=== PATIENT | male | born 1970 | race African-American/Black ===

== ENCOUNTER 2017-07-22 07:11 | Emergency (ER) | payer OTHER ==
[~2017-07-22] VITALS: Ht 182.9 cm; Wt 156.0 kg
[~2017-07-22 07:11] MED LIST: ASPI-986 PO; ATOR20TA65 PO; CARV6.2548 PO; CLOP75TA33 PO; LISI40TA4 PO; MINO2.5T19 PO
[2017-07-22] MEDS ORDERED: ONDANSETRON HCL 4MG/2ML VIAL IV STA (07:39)
[2017-07-22] MEDS ORDERED: MORPHINE SULFATE 4 MG/ML CPJ (NOT FOR IM USE) IV STA (07:39)
[2017-07-22] MEDS ORDERED: SODIUM CHLORIDE 0.9% 1,000 ML IV ONE (07:39)
[2017-07-22] MEDS ORDERED: AMLODIPINE 10MG TABLET PO ONE (07:45)
[2017-07-22] MEDS ORDERED: CARVEDILOL 6.25 MG TABLET PO ONE (07:45)
[2017-07-22 08:19] LABS: CLARITY URINE CLEAR (CLEAR); COLOR URINE YELLOW (YELLOW); GLUCOSE URINE NEGATIVE (NEGATIVE); KETONES URINE NEGATIVE (NEGATIVE); LEUKOCYTE ESTERASE URINE NEGATIVE (NEGATIVE); NITRITE URINE NEGATIVE (NEGATIVE); OCCULT BLOOD URINE NEGATIVE (NEGATIVE); PROTEIN URINE NEGATIVE (NEGATIVE); UROBILINOGEN URINE 0.2 E.U./dL (0.2-1.0)
[2017-07-22 08:20] LABS: BASOPHILS % 0.6 % (0.0-2.0); EOSINOPHILS % 1.6 % (0.0-5.0); HEMATOCRIT. 42.9 % (42.0-52.0); HEMOGLOBIN. 14.2 g/dL (14.0-18.0); LYMPHOCYTES % 20.3 % (20.0-50.0); MEAN CORPUSCULAR HEMOGLOBIN 30.3 pg (28.0-32.0); MEAN CORPUSCULAR VOLUME 91.6 fL (80.0-94.0); MEAN PLATELET VOLUME 7.9 fl (7.4-10.4); NEUTROPHILS % 71.5 % (40.0-76.0); PLATELET 279 x1000/uL (130-400); RED BLOOD CELL COUNT 4.69 mill/uL (4.7-6.1); RED CELL DISTRIBUTION WIDTH 15.5 % (11.6-14.6)
[2017-07-22 08:24] LABS: PROTHROMBIN TIME 10.5 sec (9.4-11.6)
[2017-07-22 08:34] LABS: AMYLASE 152 IU/L (25-115); CARBON DIOXIDE 26 mEq/L (21-32); CHLORIDE 106 mEq/L (98-107); TROPONIN I 0.07 ng/mL (0.00-0.04)
[2017-07-22] MEDS ORDERED: CLONIDINE 0.2MG TABLET PO ONE (09:00)
[2017-07-22] MEDS ORDERED: MORPHINE SULFATE 4 MG/ML CPJ (NOT FOR IM USE) IV ONE (09:00)
[2017-07-22 10:31] VITALS: BP 190/94
[2017-07-22] MEDS ORDERED: IOHEXOL-300 100 ML BOTTLE ONE (11:40)
[2017-07-22] MEDS ORDERED: SODIUM CHLORIDE 0.9% 10ML VIAL ONE (11:40)
== END 2017-07-22 11:10 | disposition home or self-care (01) ==
LOC: ER 07:22
DX: K11.5 Sialolithiasis (principal); I10 Essential (primary) hypertension; Z79.82 Long term (current) use of aspirin; I25.10 Atherosclerotic heart disease of native coronary artery without angina pectoris; Z95.820 Peripheral vascular angioplasty status with implants and grafts
CPT/HCPCS: 36415; 70491; 80053; 81003; 82150; 83880; 84484; 85025; 85610; 87040; 87086; 93005; 96361; 96374; 96375; 96376; 99285; A4216; J2270; J2405; J7030; Q9967; Z7610

== ENCOUNTER 2018-09-05 18:13 | Emergency (ER) | payer MEDICAID, OTHER ==
[~2018-09-05] VITALS: Ht 182.9 cm; Wt 157.0 kg
[2018-09-05] MEDS ORDERED: HYDROCODONE/ACETAMINOPHEN 5/325MG TABLET PO ONE (18:45)
[2018-09-05] MEDS ORDERED: CARVEDILOL 6.25 MG TABLET PO ONE (18:45)
[2018-09-05 19:30] VITALS: BP 144/98
== END 2018-09-05 19:30 | disposition home or self-care (01) ==
LOC: ER 18:13
DX: K04.7 Periapical abscess without sinus (principal); I11.9 Hypertensive heart disease without heart failure; I25.10 Atherosclerotic heart disease of native coronary artery without angina pectoris; Z79.82 Long term (current) use of aspirin
CPT/HCPCS: 99283

== ENCOUNTER 2018-09-16 16:09 | Inpatient (IN) | payer MEDICAID ==
[~2018-09-16] VITALS: Ht 182.9 cm; Wt 151.5 kg
[2018-09-16] MEDS ORDERED: FAMOTIDINE 20MG/2ML VIAL IV ONE (17:00)
[2018-09-16] MEDS ORDERED: METHYLPREDNISOLONE SOD SUCC 125 MG/2 ML VIAL IV ONE (17:00)
[2018-09-16] MEDS ORDERED: DIPHENHYDRAMINE 50MG/ML VIAL IV ONE (17:00)
[2018-09-16 18:19] LABS: BASOPHILS % 0.4 % (0.0-2.0); EOSINOPHILS % 0.7 % (0.0-5.0); HEMATOCRIT. 46.1 % (42.0-52.0); HEMOGLOBIN. 15.2 g/dL (14.0-18.0); LYMPHOCYTES % 23.4 % (20.0-50.0); MEAN CORPUSCULAR HEMOGLOBIN 30.6 pg (28.0-32.0); MEAN CORPUSCULAR VOLUME 92.8 fL (80.0-94.0); MEAN PLATELET VOLUME 7.6 fl (7.4-10.4); MONOCYTES % 5.9 % (2.0-8.0); NEUTROPHILS % 69.6 % (40.0-76.0); PLATELET 323 x1000/uL (130-400); RED BLOOD CELL COUNT 4.96 mill/uL (4.7-6.1); RED CELL DISTRIBUTION WIDTH 15.4 % (11.6-14.6)
[2018-09-16 18:22] LABS: CHLORIDE 107 mEq/L (98-107)
[2018-09-16] MEDS ORDERED: EPINEPHRINE 1:1000 1 MG/ML AMP SUBCUT ONE (18:30)
[2018-09-16 18:31] LABS: INR 1.2
[2018-09-16 20:00] VITALS: BP 156/101
[2018-09-16 22:00] VITALS: BP 156/101
[2018-09-17] VITALS (15 sets, daily range): BP systolic 130–185; BP diastolic 44–111
[2018-09-17] MEDS: METHYLPREDNISOLONE SOD SUCC 125 MG/2 ML VIAL IV SCH ×3 (07:11→21:05)
[2018-09-17] MEDS ORDERED: IPRATROPIUM/ALBUTEROL 0.5-3(2.5)MG/3ML NEB INH PRN (08:45)
[2018-09-17] MEDS ORDERED: DIPHENHYDRAMINE 50MG/ML VIAL IV PRN (08:45)
[2018-09-17] MEDS ORDERED: ONDANSETRON HCL 4MG/2ML INJ IV PRN (08:45)
[2018-09-17] MEDS ORDERED: ACETAMINOPHEN 325MG TABLET PO PRN (08:45)
[2018-09-17] MEDS: CLONIDINE 0.1MG TABLET PO PRN ×2 (09:25→17:22)
[2018-09-17] MEDS ORDERED: HYDROCHLOROTHIAZIDE 12.5MG CAPSULE PO SCH (10:30)
[2018-09-17] MEDS: DIPHENHYDRAMINE 25MG CAPSULE PO SCH ×2 (10:34→21:04)
[2018-09-17] MEDS: ASPIRIN 81MG TABLET PO SCH (10:34)
[2018-09-17] MEDS: AMLODIPINE 5MG TABLET PO SCH ×2 (10:35→21:06)
[2018-09-17] MEDS: FAMOTIDINE 20MG/2ML VIAL IV SCH ×2 (11:57→21:05)
[2018-09-17] MEDS ORDERED: CLOPIDOGREL 75MG TABLET PO NR (16:00)
[2018-09-17] MEDS: AMOXICILLIN/POTASSIUM CLAVULANATE 875/125MG TAB PO SCH (21:05)
[2018-09-17] MEDS: MINOXIDIL 2.5MG TABLET PO SCH (21:05)
[2018-09-17] MEDS: CARVEDILOL 6.25 MG TABLET PO SCH (21:06)
[2018-09-18] VITALS (8 sets, daily range): BP systolic 130–165; BP diastolic 79–111
[2018-09-18] MEDS: METHYLPREDNISOLONE SOD SUCC 125 MG/2 ML VIAL IV SCH (06:38)
[2018-09-18 07:26] LABS: BASOPHILS % 0.1 % (0.0-2.0); HEMATOCRIT. 40.9 % (42.0-52.0); HEMOGLOBIN. 13.4 g/dL (14.0-18.0); LYMPHOCYTES % 9.2 % (20.0-50.0); MEAN CORPUSCULAR HEMOGLOBIN 30.6 pg (28.0-32.0); MEAN CORPUSCULAR VOLUME 93.2 fL (80.0-94.0); MEAN PLATELET VOLUME 7.7 fl (7.4-10.4); MONOCYTES % 3.2 % (2.0-8.0); NEUTROPHILS % 87.5 % (40.0-76.0); PLATELET 343 x1000/uL (130-400); RED BLOOD CELL COUNT 4.38 mill/uL (4.7-6.1); RED CELL DISTRIBUTION WIDTH 15.4 % (11.6-14.6)
[2018-09-18 07:42] LABS: CHLORIDE 107 mEq/L (98-107)
[2018-09-18] MEDS: DIPHENHYDRAMINE 25MG CAPSULE PO SCH (08:54)
[2018-09-18] MEDS: CARVEDILOL 6.25 MG TABLET PO SCH (08:54)
[2018-09-18] MEDS: AMOXICILLIN/POTASSIUM CLAVULANATE 875/125MG TAB PO SCH (08:54)
[2018-09-18] MEDS: AMLODIPINE 5MG TABLET PO SCH (08:55)
[2018-09-18] MEDS: MINOXIDIL 2.5MG TABLET PO SCH (08:55)
[2018-09-18] MEDS: FAMOTIDINE 20MG/2ML VIAL IV SCH (08:55)
[2018-09-18] MEDS: ASPIRIN 81MG TABLET PO SCH (08:55)
[2018-09-18] MEDS ORDERED: FUROSEMIDE 40MG TABLET PO SCH (09:00)
[2018-09-18] MEDS ORDERED: ATORVASTATIN CALCIUM 20MG TABLET PO SCH (09:00)
[2018-09-18] MEDS ORDERED: CLOPIDOGREL 75MG TABLET PO SCH (09:00)
[2018-09-18] MEDS ORDERED: AMOX1TAB16 PO (10:52)
[2018-09-18] MEDS ORDERED: DIPH25CA83 MT (10:52)
[2018-09-18] MEDS ORDERED: PROT40 MT (10:52)
[2018-09-18] MEDS ORDERED: FAMO20TA8 MT (10:52)
[2018-09-18] MEDS ORDERED: AMLO5TAB88 PO (10:52)
[2018-09-18] MEDS ORDERED: FURO40TA5 PO (10:52)
[2018-09-18] MEDS ORDERED: P20 MT (10:52)
[2018-09-18] MEDS ORDERED: ASPI-1160 PO (10:52)
[2018-09-18] MEDS: CLONIDINE 0.1MG TABLET PO PRN (12:05)
== END 2018-09-18 12:55 | disposition home or self-care (01) | DRG 811 ==
LOC: ER 16:09 → 5EST 19:07 → EDBEDREQTM 19:35 → EDBEDREQ 19:35 → EDBEDREQSVC 19:35 → ENRESERV 20:45
PROVIDERS: ADMIT Internal Medicine; ATTEND Internal Medicine
PROC: 30233L1 Transfusion of Nonautologous Fresh Plasma into Peripheral Vein, Percutaneous Approach (ICD-10-PCS; principal; 2018-09-16)
PROC: 30233K1 Transfusion of Nonautologous Frozen Plasma into Peripheral Vein, Percutaneous Approach (ICD-10-PCS; 2018-09-16)
DX: T78.3XXA Angioneurotic edema, initial encounter (principal); I42.9 Cardiomyopathy, unspecified; I11.0 Hypertensive heart disease with heart failure; I50.32 Chronic diastolic (congestive) heart failure; Z86.74 Personal history of sudden cardiac arrest; T88.6XXA Anaphylactic reaction due to adverse effect of correct drug or medicament properly administered, initial encounter; K11.5 Sialolithiasis; I25.10 Atherosclerotic heart disease of native coronary artery without angina pectoris; K08.89 Other specified disorders of teeth and supporting structures; K11.20 Sialoadenitis, unspecified; T46.4X5A Adverse effect of angiotensin-converting-enzyme inhibitors, initial encounter; Z95.5 Presence of coronary angioplasty implant and graft; Z82.49 Family history of ischemic heart disease and other diseases of the circulatory system; Z82.5 Family history of asthma and other chronic lower respiratory diseases; Y92.89 Other specified places as the place of occurrence of the external cause; Z79.899 Other long term (current) drug therapy; Z79.82 Long term (current) use of aspirin; I25.2 Old myocardial infarction; Z88.0 Allergy status to penicillin
CPT/HCPCS: 36415; 36430; 70486; 71045; 80048; 86850; 86900; 86927; 93005; 93306; 96372; 96374; 96375; 99291; J1200; J2930; J3490; P9017; Q0163

== ENCOUNTER 2018-09-20 13:27 | Inpatient (IN) | payer MEDICAID ==
[~2018-09-20] VITALS: Ht 182.9 cm; Wt 149.7 kg
[~2018-09-20 13:27] MED LIST changes: +AMLO5TAB88 PO; +AMOX1TAB16 PO; +ASPI-1160 PO; -ASPI-986 PO; +DIPH25CA83 MT; +FAMO20TA8 MT; +FURO40TA5 PO; -LISI40TA4 PO; +P20 MT; +PROT40 MT
[2018-09-20 14:33] LABS: EOSINOPHILS % 0.4 % (0.0-5.0); LYMPHOCYTES % 18.3 % (20.0-50.0); MEAN CORPUSCULAR HEMOGLOBIN 30.7 pg (28.0-32.0); MEAN PLATELET VOLUME 7.6 fl (7.4-10.4); MONOCYTES % 3.8 % (2.0-8.0); NEUTROPHILS % 77.5 % (40.0-76.0); PLATELET 386 x1000/uL (130-400); RED BLOOD CELL COUNT 5.21 mill/uL (4.7-6.1); RED CELL DISTRIBUTION WIDTH 15.5 % (11.6-14.6)
[2018-09-20 14:37] LABS: CHLORIDE 102 mEq/L (98-107); INR 1.1; PROTHROMBIN TIME 10.8 sec (9.1-11.1)
[2018-09-20] MEDS ORDERED: ONDANSETRON HCL 4MG/2ML INJ IV ONE ×2 (15:00→18:00)
[2018-09-20] MEDS ORDERED: SODIUM CHLORIDE 0.9% 1,000 ML IV ONE (15:00)
[2018-09-20] MEDS ORDERED: DIPHENHYDRAMINE 50MG/ML VIAL IV ONE (15:45)
[2018-09-20] MEDS ORDERED: AMLODIPINE 5MG TABLET PO ONE (15:45)
[2018-09-20] MEDS ORDERED: CARVEDILOL 6.25 MG TABLET PO ONE (15:45)
[2018-09-20] MEDS ORDERED: POTASSIUM CHLORIDE 20MEQ/PACKET PO NR (17:45)
[2018-09-20] MEDS ORDERED: FAMOTIDINE 20MG/2ML VIAL IV ONE (18:00)
[2018-09-20 18:35] LABS: CLARITY URINE CLEAR (CLEAR); COLOR URINE YELLOW (YELLOW); KETONES URINE TRACE (NEGATIVE); LEUKOCYTE ESTERASE URINE NEGATIVE (NEGATIVE); NITRITE URINE NEGATIVE (NEGATIVE); OCCULT BLOOD URINE NEGATIVE (NEGATIVE); PH URINE >=9.0 (4.5-8.0); PROTEIN URINE TRACE (NEGATIVE); SPECIFIC GRAVITY URINE 1.023 (1.005-1.030)
[2018-09-20] MEDS ORDERED: HYDRALAZINE 20MG/ML VIAL IV PRN (20:00)
[2018-09-20] MEDS ORDERED: CLONIDINE 0.1MG TABLET PO PRN (20:00)
[2018-09-20] MEDS ORDERED: ACETAMINOPHEN 325MG TABLET PO PRN (20:00)
[2018-09-20] MEDS ORDERED: ONDANSETRON HCL 4MG/2ML INJ IV PRN (20:00)
[2018-09-20 22:45] VITALS: BP 138/87
[2018-09-20] MEDS: AMLODIPINE 5MG TABLET PO SCH (23:27)
[2018-09-20] MEDS: DIPHENHYDRAMINE 50MG/ML VIAL IV PRN (23:46)
[2018-09-21] VITALS: BP 118/60
[2018-09-21 04:00] VITALS: BP 130/84
[2018-09-21 06:45] LABS: BASOPHILS % 0.2 % (0.0-2.0); EOSINOPHILS % 1.5 % (0.0-5.0); HEMATOCRIT. 42.8 % (42.0-52.0); HEMOGLOBIN. 14.4 g/dL (14.0-18.0); LYMPHOCYTES % 24.1 % (20.0-50.0); MEAN CORPUSCULAR HEMOGLOBIN 31.2 pg (28.0-32.0); MEAN CORPUSCULAR VOLUME 93.1 fL (80.0-94.0); MEAN PLATELET VOLUME 7.7 fl (7.4-10.4); MONOCYTES % 3.8 % (2.0-8.0); NEUTROPHILS % 70.4 % (40.0-76.0); PLATELET 314 x1000/uL (130-400); RED CELL DISTRIBUTION WIDTH 15.5 % (11.6-14.6)
[2018-09-21 06:52] LABS: CHLORIDE 104 mEq/L (98-107)
[2018-09-21 08:00] VITALS: BP 147/93
[2018-09-21] MEDS: AMLODIPINE 5MG TABLET PO SCH ×2 (08:35→20:55)
[2018-09-21] MEDS: PANTOPRAZOLE SODIUM 40 MG/VIAL IV SCH (08:36)
[2018-09-21 12:00] VITALS: BP 125/89
[2018-09-21 13:11] LABS: *AMPHETAMINES SCREEN URINE NEGATIVE (NEGATIVE); *BARBITURATES SCREEN URINE NEGATIVE (NEGATIVE); *BENZODIAZEPINES SCREEN URINE NEGATIVE (NEGATIVE); *COCAINE SCREEN URINE NEGATIVE (NEGATIVE); METHADONE URINE SCREEN NEGATIVE (NEGATIVE); OPIATES URINE SCREEN NEGATIVE (NEGATIVE)
[2018-09-21 13:12] LABS: PHENCYCLIDINE URINE SCREEN NEGATIVE (NEGATIVE)
[2018-09-21 13:13] LABS: CANNABINOID URINE SCREEN NEGATIVE (NEGATIVE)
[2018-09-21 16:00] VITALS: BP 122/79
[2018-09-21] MEDS: DIPHENHYDRAMINE 50MG/ML VIAL IV PRN (18:10)
[2018-09-21 19:10] LABS: AMYLASE 93 IU/L (25-115)
[2018-09-21 20:00] VITALS: BP 113/75
[2018-09-22] VITALS: BP 115/53
[2018-09-22 04:00] VITALS: BP 131/77
[2018-09-22 08:00] VITALS: BP 131/81
[2018-09-22] MEDS: PANTOPRAZOLE SODIUM 40 MG/VIAL IV SCH (08:54)
[2018-09-22] MEDS: AMLODIPINE 5MG TABLET PO SCH (08:54)
[2018-09-22 12:00] VITALS: BP 151/84
[2018-09-22] MEDS: DIPHENHYDRAMINE 50MG/ML VIAL IV PRN (12:42)
[2018-09-22 12:47] VITALS: BP 151/84
== END 2018-09-22 13:30 | disposition home or self-care (01) | DRG 249 ==
LOC: ER 13:27 → 5WST 15:59 → EDBEDREQ 16:04 → EDBEDREQTM 16:04 → ENRESERV 20:00 → EDBEDREQ 22:04
PROVIDERS: ADMIT Internal Medicine; ATTEND Internal Medicine
DX: R11.2 Nausea with vomiting, unspecified (principal); R65.10 Systemic inflammatory response syndrome (SIRS) of non-infectious origin without acute organ dysfunction; E66.01 Morbid (severe) obesity due to excess calories; E44.1 Mild protein-calorie malnutrition; Z86.74 Personal history of sudden cardiac arrest; E83.51 Hypocalcemia; Z68.41 Body mass index [BMI] 40.0-44.9, adult; E87.6 Hypokalemia; T36.0X5A Adverse effect of penicillins, initial encounter; I10 Essential (primary) hypertension; I25.10 Atherosclerotic heart disease of native coronary artery without angina pectoris; I25.2 Old myocardial infarction; Z82.49 Family history of ischemic heart disease and other diseases of the circulatory system; Z95.5 Presence of coronary angioplasty implant and graft; Z88.0 Allergy status to penicillin; Y92.89 Other specified places as the place of occurrence of the external cause; Z79.82 Long term (current) use of aspirin; Z79.899 Other long term (current) drug therapy
CPT/HCPCS: 36415; 71045; 74176; 80048; 80305; 82150; 83036; 83605; 83880; 84484; 93005; 96361; 96374; 96375; 96376; 99285; C9113; J1200; J2405; J3490

== ENCOUNTER 2019-08-07 23:23 | Emergency (ER) | payer MEDICAID, OTHER ==
[~2019-08-07] VITALS: Ht 182.9 cm; Wt 152.0 kg
[~2019-08-07 23:23] MED LIST changes: -AMOX1TAB16 PO; -P20 MT
[2019-08-08] MEDS ORDERED: KETOROLAC 30MG/ML VIAL IV STA (00:29)
[2019-08-08 00:51] LABS: BASOPHILS % 0.6 % (0.0-2.0); EOSINOPHILS % 1.8 % (0.0-5.0); HEMATOCRIT. 42.1 % (42.0-52.0); LYMPHOCYTES % 28.5 % (20.0-50.0); MEAN CORPUSCULAR HEMOGLOBIN 30.6 pg (28.0-32.0); MEAN CORPUSCULAR VOLUME 92.3 fL (80.0-94.0); MEAN PLATELET VOLUME 7.2 fl (7.4-10.4); MONOCYTES % 8.7 % (2.0-8.0); NEUTROPHILS % 60.4 % (40.0-76.0); PLATELET 306 x1000/uL (130-400); RED BLOOD CELL COUNT 4.56 mill/uL (4.7-6.1); RED CELL DISTRIBUTION WIDTH 15.8 % (11.6-14.6)
[2019-08-08 00:59] LABS: CHLORIDE 110 mEq/L (98-107)
[2019-08-08 04:15] VITALS: BP 165/99
== END 2019-08-08 04:38 | disposition home or self-care (01) ==
LOC: ER 08-08 00:30
DX: K11.5 Sialolithiasis (principal); R07.89 Other chest pain; R11.10 Vomiting, unspecified; I10 Essential (primary) hypertension; Z88.0 Allergy status to penicillin; Z79.82 Long term (current) use of aspirin; Z79.899 Other long term (current) drug therapy; Z95.5 Presence of coronary angioplasty implant and graft
CPT/HCPCS: 36415; 70490; 71045; 80053; 83880; 84484; 85025; 93005; 96374; 99284; J1885

== ENCOUNTER 2020-01-08 01:23 | Emergency (ER) | payer OTHER ==
[~2020-01-08] VITALS: Ht 182.9 cm; Wt 163.0 kg
[2020-01-08] MEDS ORDERED: ASPIRIN 81MG TABLET PO ONE (02:00)
[2020-01-08] MEDS ORDERED: NITROGLYCERIN 0.4MG TABLET SL SL PRN (02:00)
[2020-01-08 02:16] LABS: EOSINOPHILS % 1.9 % (0.0-5.0); HEMATOCRIT. 42.2 % (42.0-52.0); HEMOGLOBIN. 14.4 g/dL (14.0-18.0); LYMPHOCYTES % 28.2 % (20.0-50.0); MEAN CORPUSCULAR HEMOGLOBIN 31.3 pg (28.0-32.0); MEAN CORPUSCULAR VOLUME 91.6 fL (80.0-94.0); MEAN PLATELET VOLUME 7.3 fl (7.4-10.4); MONOCYTES % 7.2 % (2.0-8.0); NEUTROPHILS % 61.7 % (40.0-76.0); PLATELET 305 x1000/uL (130-400); RED CELL DISTRIBUTION WIDTH 15.2 % (11.6-14.6)
[2020-01-08 02:21] LABS: CHLORIDE 107 mEq/L (98-107)
[2020-01-08 02:26] LABS: D-DIMER 0.29 mg/L FEU (<0.50); PARTIAL THROMBOPLASTIN TIME 31.5 sec (23.4-31.0); PROTHROMBIN TIME 10.7 sec (9.6-11.0)
[2020-01-08 07:50] VITALS: BP 166/102
== END 2020-01-08 08:00 | disposition short-term general hospital (02) ==
LOC: ER 01:23
DX: I24.9 Acute ischemic heart disease, unspecified (principal); I10 Essential (primary) hypertension; Z95.820 Peripheral vascular angioplasty status with implants and grafts; Z88.0 Allergy status to penicillin; Z79.899 Other long term (current) drug therapy; Z79.82 Long term (current) use of aspirin
CPT/HCPCS: 36415; 71045; 80053; 82962; 83880; 84484; 85025; 85379; 85610; 85730; 93005; 99285; Z7610

== ENCOUNTER 2020-04-26 15:22 | Emergency (ER) | payer OTHER ==
[~2020-04-26] VITALS: Ht 182.9 cm; Wt 154.0 kg
[2020-04-26] MEDS ORDERED: METO-385 PO (15:31)
[2020-04-26] MEDS ORDERED: POTA20TA82 PO (15:32)
[2020-04-26 16:50] LABS: BASOPHILS % 0.7 % (0.0-2.0); EOSINOPHILS % 2.1 % (0.0-5.0); HEMATOCRIT. 43.9 % (42.0-52.0); HEMOGLOBIN. 14.9 g/dL (14.0-18.0); LYMPHOCYTES % 24.3 % (20.0-50.0); MEAN CORPUSCULAR HEMOGLOBIN 31.7 pg (28.0-32.0); MEAN CORPUSCULAR VOLUME 93.8 fL (80.0-94.0); MEAN PLATELET VOLUME 7.9 fl (7.4-10.4); MONOCYTES % 7.6 % (2.0-8.0); NEUTROPHILS % 65.3 % (40.0-76.0); PLATELET 287 x1000/uL (130-400); RED BLOOD CELL COUNT 4.69 mill/uL (4.7-6.1); RED CELL DISTRIBUTION WIDTH 15.8 % (11.6-14.6)
[2020-04-26 16:51] LABS: CHLORIDE 108 mEq/L (98-107)
[2020-04-26 18:00] LABS: CLARITY URINE CLEAR (CLEAR); COLOR URINE YELLOW (YELLOW); KETONES URINE NEGATIVE (NEGATIVE); LEUKOCYTE ESTERASE URINE NEGATIVE (NEGATIVE); NITRITE URINE NEGATIVE (NEGATIVE); OCCULT BLOOD URINE NEGATIVE (NEGATIVE); PROTEIN URINE NEGATIVE (NEGATIVE); SPECIFIC GRAVITY URINE 1.018 (1.005-1.030); UROBILINOGEN URINE 0.2 E.U./dL (0.2-1.0)
[2020-04-26 18:23] VITALS: BP 156/97
[2020-04-26] MEDS ORDERED: METOPROLOL TARTRATE 50MG TABLET PO ONE (18:45)
== END 2020-04-26 19:24 | disposition home or self-care (01) ==
LOC: ER 15:22
DX: I11.9 Hypertensive heart disease without heart failure (principal); Z88.0 Allergy status to penicillin; Z79.82 Long term (current) use of aspirin; Z95.820 Peripheral vascular angioplasty status with implants and grafts
CPT/HCPCS: 36415; 71045; 80053; 81003; 83880; 84484; 85025; 93005; 99285

== ENCOUNTER 2020-05-21 10:12 | Emergency (ER) | payer MEDICAID, OTHER ==
[~2020-05-21] VITALS: Ht 182.9 cm; Wt 154.0 kg
[~2020-05-21 10:12] MED LIST changes: +METO-385 PO; +POTA20TA82 PO
[2020-05-21 11:44] VITALS: BP 147/83
== END 2020-05-21 11:46 | disposition home or self-care (01) ==
LOC: ER 10:47
DX: K64.9 Unspecified hemorrhoids (principal); I10 Essential (primary) hypertension; Z79.899 Other long term (current) drug therapy; Z79.82 Long term (current) use of aspirin; Z88.0 Allergy status to penicillin
CPT/HCPCS: 93005; 99283

== ENCOUNTER 2021-10-29 08:43 | Inpatient (IN) | payer OTHER ==
[~2021-10-29] VITALS: Ht 182.9 cm; Wt 154.2 kg
[2021-10-29] MEDS ORDERED: ONDANSETRON HCL 4MG/2ML INJ IV STA (09:04)
[2021-10-29] MEDS ORDERED: MORPHINE SULFATE 4 MG/ML CPJ (NOT FOR IM USE) IV STA (09:04)
[2021-10-29] MEDS ORDERED: NITROGLYCERIN OINT 1GM/INCH UDPKT TD ONE (09:15)
[2021-10-29] MEDS ORDERED: ASPIRIN 81MG TABLET PO ONE (09:15)
[2021-10-29 10:19] LABS: BASOPHILS % 0.7 % (0.0-2.0); EOSINOPHILS % 2.3 % (0.0-5.0); HEMATOCRIT. 43.2 % (42.0-52.0); HEMOGLOBIN. 14.1 g/dL (14.0-18.0); LYMPHOCYTES % 26.2 % (20.0-50.0); MEAN CORPUSCULAR HEMOGLOBIN 30.1 pg (28.0-32.0); MEAN CORPUSCULAR VOLUME 92.4 fL (80.0-94.0); MEAN PLATELET VOLUME 7.2 fl (7.4-10.4); MONOCYTES % 6.3 % (2.0-8.0); NEUTROPHILS % 64.5 % (40.0-76.0); PLATELET 316 x1000/uL (130-400); RED BLOOD CELL COUNT 4.68 mill/uL (4.7-6.1); RED CELL DISTRIBUTION WIDTH 14.9 % (11.6-14.6)
[2021-10-29 10:22] LABS: CHLORIDE 107 mEq/L (98-107)
[2021-10-29 10:27] LABS: ETHANOL BLOOD < 10 mg/dL
[2021-10-29 11:30] LABS: CANNABINOID URINE SCREEN NEGATIVE (NEGATIVE); OPIATES URINE SCREEN NEGATIVE (NEGATIVE); PHENCYCLIDINE URINE SCREEN NEGATIVE (NEGATIVE)
[2021-10-29 11:31] LABS: *AMPHETAMINES SCREEN URINE NEGATIVE (NEGATIVE); *BARBITURATES SCREEN URINE NEGATIVE (NEGATIVE); *BENZODIAZEPINES SCREEN URINE NEGATIVE (NEGATIVE); *COCAINE SCREEN URINE NEGATIVE (NEGATIVE); METHADONE URINE SCREEN NEGATIVE (NEGATIVE)
[2021-10-29] MEDS ORDERED: POTASSIUM CHLORIDE 20MEQ TABLET SR PO ONE (12:15)
[2021-10-29] MEDS ORDERED: IPRATROPIUM/ALBUTEROL 0.5-3(2.5)MG/3ML NEB HHN PRN (15:15)
[2021-10-29] MEDS ORDERED: HYDROCODONE/ACETAMINOPHEN 5/325MG TABLET PO PRN (15:15)
[2021-10-29] MEDS ORDERED: LORAZEPAM 0.5MG TABLET PO PRN (15:15)
[2021-10-29] MEDS ORDERED: DOCUSATE SODIUM 100MG CAPSULE PO PRN (15:15)
[2021-10-29] MEDS ORDERED: ONDANSETRON HCL 4MG/2ML INJ IV PRN (15:15)
[2021-10-29] MEDS ORDERED: CLONIDINE 0.1MG TABLET PO PRN (15:15)
[2021-10-29] MEDS ORDERED: NITROGLYCERIN 0.4MG TABLET SL SL PRN (15:15)
[2021-10-29] MEDS ORDERED: ACETAMINOPHEN 325MG TABLET PO PRN ×2 (15:15)
[2021-10-29 17:43] LABS: CREATINE KINASE MB FRACTION 1.2 ng/mL (0.5-3.6)
[2021-10-29] MEDS: ISOSORBIDE MONONITRATE 30MG TABLET SR 24HR PO SCH (18:03)
[2021-10-29] MEDS: ATORVASTATIN CALCIUM 40MG TABLET PO SCH (21:00)
[2021-10-29] MEDS: METOPROLOL TARTRATE 25MG TABLET PO SCH (21:00)
[2021-10-30 11:27] LABS: BASOPHILS % 0.5 % (0.0-2.0); EOSINOPHILS % 2.1 % (0.0-5.0); HEMATOCRIT. 43.7 % (42.0-52.0); HEMOGLOBIN. 14.4 g/dL (14.0-18.0); LYMPHOCYTES % 24.3 % (20.0-50.0); MEAN CORPUSCULAR HEMOGLOBIN 30.7 pg (28.0-32.0); MEAN CORPUSCULAR VOLUME 93.5 fL (80.0-94.0); MEAN PLATELET VOLUME 7.1 fl (7.4-10.4); MONOCYTES % 6.7 % (2.0-8.0); NEUTROPHILS % 66.4 % (40.0-76.0); PLATELET 305 x1000/uL (130-400); RED BLOOD CELL COUNT 4.68 mill/uL (4.7-6.1); RED CELL DISTRIBUTION WIDTH 14.5 % (11.6-14.6)
[2021-10-30 11:34] LABS: CHLORIDE 107 mEq/L (98-107)
[2021-10-30 14:31] VITALS: BP 163/108
[2021-10-30 16:00] VITALS: BP 150/101
[2021-10-30 20:00] VITALS: BP 132/80
[2021-10-30] MEDS: ATORVASTATIN CALCIUM 40MG TABLET PO SCH (21:07)
[2021-10-30] MEDS: METOPROLOL TARTRATE 25MG TABLET PO SCH (21:07)
[2021-10-31] VITALS: BP 129/70
[2021-10-31 04:00] VITALS: BP 154/94
[2021-10-31 08:00] VITALS: BP 177/107
[2021-10-31] MEDS: ISOSORBIDE MONONITRATE 30MG TABLET SR 24HR PO SCH ×2 (10:06→10:09)
[2021-10-31] MEDS: ASPIRIN 81MG EC TABLET PO SCH ×2 (10:07→10:09)
[2021-10-31] MEDS: METOPROLOL TARTRATE 25MG TABLET PO SCH ×3 (10:07→23:06)
[2021-10-31] MEDS ORDERED: MIDAZOLAM HCL 2 MG/2 ML VIAL ONE (12:08)
[2021-10-31] MEDS ORDERED: IODIXANOL 320MG/ML 100 ML BOTTLE IV ONE ×2 (12:09→12:49)
[2021-10-31] MEDS ORDERED: LIDOCAINE HCL 1% 20ML VIAL (Pyxis) INJ ONE (12:09)
[2021-10-31] MEDS ORDERED: FENTANYL CITRATE/PF 50MCG/ML 2ML VIAL ONE (12:09)
[2021-10-31] MEDS ORDERED: NITROGLYCERIN 50MCG/ML 10ML VIAL (CATH LAB) IV ONE (12:52)
[2021-10-31] MEDS ORDERED: HEPARIN SODIUM 1,000 UNIT/1ML VIAL IV ONE (12:52)
[2021-10-31] MEDS ORDERED: NICARDIPINE 100MCG/ML 10ML VIAL (CATH LAB) IV ONE (12:52)
[2021-10-31] MEDS ORDERED: ACETAMINOPHEN 325MG TABLET PO PRN (13:00)
[2021-10-31] MEDS ORDERED: ATROPINE SULFATE 1MG/10ML SYR IV PRN (13:00)
[2021-10-31 20:45] LABS: BASOPHILS % 0.6 % (0.0-2.0); EOSINOPHILS % 2.2 % (0.0-5.0); HEMATOCRIT. 39.7 % (42.0-52.0); HEMOGLOBIN. 13.1 g/dL (14.0-18.0); LYMPHOCYTES % 28.7 % (20.0-50.0); MEAN CORPUSCULAR HEMOGLOBIN 30.9 pg (28.0-32.0); MEAN CORPUSCULAR VOLUME 93.8 fL (80.0-94.0); MEAN PLATELET VOLUME 7.5 fl (7.4-10.4); MONOCYTES % 8.4 % (2.0-8.0); NEUTROPHILS % 60.1 % (40.0-76.0); PLATELET 286 x1000/uL (130-400); RED BLOOD CELL COUNT 4.23 mill/uL (4.7-6.1); RED CELL DISTRIBUTION WIDTH 14.9 % (11.6-14.6)
[2021-10-31 20:55] LABS: CHLORIDE 107 mEq/L (98-107)
[2021-10-31 21:03] LABS: INR 1.1; PARTIAL THROMBOPLASTIN TIME 29.3 sec (23.4-31.0); PROTHROMBIN TIME 11.3 sec (9.6-11.0)
[2021-10-31] MEDS: ATORVASTATIN CALCIUM 40MG TABLET PO SCH (23:05)
[2021-11-01] VITALS: BP 128/71
[2021-11-01 04:00] VITALS: BP 144/62
[2021-11-01 08:00] VITALS: BP 132/69
[2021-11-01] MEDS: ISOSORBIDE MONONITRATE 30MG TABLET SR 24HR PO SCH (09:00)
[2021-11-01] MEDS: ASPIRIN 81MG EC TABLET PO SCH (10:03)
[2021-11-01] MEDS: METOPROLOL TARTRATE 25MG TABLET PO SCH (10:04)
[2021-11-01 10:06] VITALS: BP 132/69
[2021-11-01 11:19] LABS: CHLORIDE 106 mEq/L (98-107)
[2021-11-01 11:22] LABS: BASOPHILS % 0.5 % (0.0-2.0); EOSINOPHILS % 2.4 % (0.0-5.0); HEMATOCRIT. 40.2 % (42.0-52.0); HEMOGLOBIN. 13.3 g/dL (14.0-18.0); LYMPHOCYTES % 24.5 % (20.0-50.0); MEAN CORPUSCULAR HEMOGLOBIN 30.9 pg (28.0-32.0); MEAN CORPUSCULAR VOLUME 93.2 fL (80.0-94.0); MEAN PLATELET VOLUME 7.6 fl (7.4-10.4); MONOCYTES % 7.1 % (2.0-8.0); NEUTROPHILS % 65.5 % (40.0-76.0); PLATELET 289 x1000/uL (130-400); RED BLOOD CELL COUNT 4.31 mill/uL (4.7-6.1); RED CELL DISTRIBUTION WIDTH 14.4 % (11.6-14.6)
== END 2021-11-01 10:50 | disposition home or self-care (01) | DRG 191 ==
LOC: ER 08:43 → 5WST 11:41 → EDBEDREQ 11:58
PROVIDERS: ADMIT Internal Medicine; ATTEND Internal Medicine
PROC: 4A023N7 Measurement of Cardiac Sampling and Pressure, Left Heart, Percutaneous Approach (ICD-10-PCS; principal; 2021-10-31)
PROC: B2111ZZ Fluoroscopy of Multiple Coronary Arteries using Low Osmolar Contrast (ICD-10-PCS; 2021-10-31)
DX: I25.119 Atherosclerotic heart disease of native coronary artery with unspecified angina pectoris (principal); E66.01 Morbid (severe) obesity due to excess calories; E78.5 Hyperlipidemia, unspecified; E87.6 Hypokalemia; I10 Essential (primary) hypertension; E78.00 Pure hypercholesterolemia, unspecified; Z88.0 Allergy status to penicillin; Z95.5 Presence of coronary angioplasty implant and graft; Z79.899 Other long term (current) drug therapy; Z68.42 Body mass index [BMI] 45.0-49.9, adult; Z79.82 Long term (current) use of aspirin; Z82.49 Family history of ischemic heart disease and other diseases of the circulatory system; Z20.822 Contact with and (suspected) exposure to COVID-19
CPT/HCPCS: 36415; 71045; 80048; 80053; 80061; 80305; 80320; 82550; 82553; 83036; 83735; 83880; 84484; 85025; 85379; 87426; 93005; 93306; 93454; 99291; C1769; C1887; C1893; J1644; J2250; J2270; J2405; J3010; J3490; Q9967; U0003; A4315; G0480

== ENCOUNTER 2022-02-26 23:04 | Emergency (ER) | payer OTHER ==
[~2022-02-26] VITALS: Ht 182.9 cm; Wt 155.0 kg
[2022-02-27 00:19] LABS: BASOPHILS % 0.5 % (0.0-2.0); EOSINOPHILS % 0.7 % (0.0-5.0); HEMATOCRIT. 43.3 % (42.0-52.0); HEMOGLOBIN. 14.5 g/dL (14.0-18.0); LYMPHOCYTES % 11.3 % (20.0-50.0); MEAN CORPUSCULAR HEMOGLOBIN 31.1 pg (28.0-32.0); MEAN CORPUSCULAR VOLUME 93.2 fL (80.0-94.0); MEAN PLATELET VOLUME 7.2 fl (7.4-10.4); MONOCYTES % 7.9 % (2.0-8.0); NEUTROPHILS % 79.6 % (40.0-76.0); PLATELET 257 x1000/uL (130-400); RED BLOOD CELL COUNT 4.64 mill/uL (4.7-6.1); RED CELL DISTRIBUTION WIDTH 15.1 % (11.6-14.6)
[2022-02-27 00:26] LABS: CHLORIDE 109 mEq/L (98-107)
[2022-02-27] MEDS ORDERED: CLINDAMYCIN HCL 150MG CAPSULE PO STA (02:03)
[2022-02-27] MEDS ORDERED: HYDROCODONE/ACETAMINOPHEN 5/325MG TABLET PO ONE (02:15)
[2022-02-27 03:15] VITALS: BP 163/102
[2022-02-27] MEDS ORDERED: HYDR-4001 MT (03:30)
[2022-02-27] MEDS ORDERED: CLIN300C12 MT (03:30)
[2022-02-27] MEDS ORDERED: IBUP-1523 MT (03:32)
== END 2022-02-27 03:51 | disposition home or self-care (01) ==
LOC: ER 23:04
DX: I10 Essential (primary) hypertension (principal); K04.7 Periapical abscess without sinus; I25.10 Atherosclerotic heart disease of native coronary artery without angina pectoris; E78.00 Pure hypercholesterolemia, unspecified; Z88.0 Allergy status to penicillin; Z88.8 Allergy status to other drugs, medicaments and biological substances
CPT/HCPCS: 36415; 71045; 80053; 83880; 84484; 85025; 99284; Z7610

== ENCOUNTER 2022-06-18 10:22 | Emergency (ER) | payer OTHER ==
[~2022-06-18] VITALS: Ht 182.9 cm; Wt 158.0 kg
[~2022-06-18 10:22] MED LIST changes: +CLIN-194 MT; +IBUP-1523 MT; +POTA-205 PO; -POTA20TA82 PO
[2022-06-18 11:01] LABS: BASOPHILS % 0.7 % (0.0-2.0); EOSINOPHILS % 2.2 % (0.0-5.0); HEMOGLOBIN. 14.2 g/dL (14.0-18.0); LYMPHOCYTES % 25.5 % (20.0-50.0); MEAN CORPUSCULAR HEMOGLOBIN 30.9 pg (28.0-32.0); MEAN CORPUSCULAR VOLUME 93.6 fL (80.0-94.0); MEAN PLATELET VOLUME 7.2 fl (7.4-10.4); MONOCYTES % 6.9 % (2.0-8.0); NEUTROPHILS % 64.7 % (40.0-76.0); PLATELET 298 x1000/uL (130-400); RED CELL DISTRIBUTION WIDTH 15.8 % (11.6-14.6)
[2022-06-18 11:09] LABS: CHLORIDE 109 mEq/L (98-107)
[2022-06-18 12:43] LABS: CLARITY URINE CLEAR (CLEAR); COLOR URINE YELLOW (YELLOW); KETONES URINE NEGATIVE (NEGATIVE); LEUKOCYTE ESTERASE URINE NEGATIVE (NEGATIVE); NITRITE URINE NEGATIVE (NEGATIVE); OCCULT BLOOD URINE NEGATIVE (NEGATIVE); PH URINE 5.5 (4.5-8.0); PROTEIN URINE NEGATIVE (NEGATIVE); SPECIFIC GRAVITY URINE 1.014 (1.005-1.030); UROBILINOGEN URINE 0.2 E.U./dL (0.2-1.0)
[2022-06-18] MEDS ORDERED: AMLODIPINE 5MG TABLET PO ONE (13:00)
[2022-06-18] MEDS ORDERED: AMLO5TAB4 MT (13:44)
[2022-06-18 14:15] VITALS: BP 165/98
== END 2022-06-18 14:16 | disposition home or self-care (01) ==
LOC: ER 10:22
DX: I16.0 Hypertensive urgency (principal); E78.00 Pure hypercholesterolemia, unspecified; Z88.0 Allergy status to penicillin; Z88.9 Allergy status to unspecified drugs, medicaments and biological substances; Z88.8 Allergy status to other drugs, medicaments and biological substances; Z79.899 Other long term (current) drug therapy; Z98.890 Other specified postprocedural states
CPT/HCPCS: 36415; 71045; 73660; 80053; 81003; 84484; 85025; 99284; A4565

== ENCOUNTER 2023-12-29 16:49 | Emergency (ER) | payer OTHER ==
[~2023-12-29] VITALS: Ht 182.9 cm; Wt 136.0 kg
[~2023-12-29 16:49] MED LIST changes: +AMLO5TAB4 MT
[2023-12-29 16:54] VITALS: O2SAT 97
[2023-12-29 17:18] LABS: CLARITY URINE CLEAR (CLEAR); COLOR URINE YELLOW (YELLOW); GLUCOSE URINE NEGATIVE (NEGATIVE); KETONES URINE NEGATIVE (NEGATIVE); LEUKOCYTE ESTERASE URINE NEGATIVE (NEGATIVE); NITRITE URINE NEGATIVE (NEGATIVE); OCCULT BLOOD URINE NEGATIVE (NEGATIVE); PH URINE 6.5 (4.5-8.0); PROTEIN URINE NEGATIVE (NEGATIVE); SPECIFIC GRAVITY URINE 1.011 (1.005-1.030); UROBILINOGEN URINE 0.2 E.U./dL (0.2-1.0)
[2023-12-29 18:06] LABS: BASOPHILS % 0.9 % (0.0-2.0); EOSINOPHILS % 1.9 % (0.0-5.0); HEMATOCRIT. 41.7 % (42.0-52.0); LYMPHOCYTES % 31.1 % (20.0-50.0); MEAN CORPUSCULAR HEMOGLOBIN 32.1 pg (28.0-32.0); MEAN CORPUSCULAR HGB CONC 33.6 g/dL (31.0-37.0); MEAN CORPUSCULAR VOLUME 95.4 fL (80.0-94.0); MEAN PLATELET VOLUME 7.3 fl (7.4-10.4); MONOCYTES % 8.2 % (2.0-8.0); NEUTROPHILS % 57.9 % (40.0-76.0); PLATELET 279 x1000/uL (130-400); RED BLOOD CELL COUNT 4.37 mill/uL (4.7-6.1); RED CELL DISTRIBUTION WIDTH 14.7 % (11.6-14.6); WHITE BLOOD COUNT 5.7 x1000/uL (4.5-11.0)
[2023-12-29 18:23] LABS: ALANINE AMINOTRANSFERASE 20 IU/L (10-49); ALBUMIN 4.7 g/dL (3.2-4.8); ASPARTATE AMINOTRANSFERASE 26 IU/L (<34); BILIRUBIN TOTAL 0.4 mg/dL (0.1-1.0); CARBON DIOXIDE 25 mEq/L (21-32); CHLORIDE 108 mEq/L (98-107); CREATININE 1.1 mg/dL (0.6-1.3); GLUCOSE 89 mg/dL (70-105); POTASSIUM 3.6 mEq/L (3.5-5.1); PROTEIN TOTAL 8.5 g/dL (6.0-8.3); SODIUM 140 mEq/L (136-145); UREA NITROGEN BLOOD 11 mg/dL (9-23)
[2023-12-30] MEDS ORDERED: AMOX1TAB16 MT (02:07)
[2023-12-30] MEDS ORDERED: HYDR-4001 MT (02:07)
[2023-12-30] MEDS: MORPHINE SULFATE 10 MG/ML CPJ IM ONE (02:32)
[2023-12-30] MEDS: ONDANSETRON 4MG ODT PO ONE (02:33)
[2023-12-30 02:40] VITALS: BP 125/87; PULSE 83; RESP 17; TEMP 98.5
[2023-12-31] MEDS ORDERED: CLIN-116 MT (00:15)
[2023-12-31] MEDS ORDERED: HYDR-4001 MT (00:15)
== END 2023-12-30 03:00 | disposition home or self-care (01) ==
LOC: ER 16:49
DX: K11.5 Sialolithiasis (principal); K04.7 Periapical abscess without sinus; I10 Essential (primary) hypertension; I11.0 Hypertensive heart disease with heart failure; I50.9 Heart failure, unspecified; E78.00 Pure hypercholesterolemia, unspecified; I25.10 Atherosclerotic heart disease of native coronary artery without angina pectoris; Z79.899 Other long term (current) drug therapy; Z88.0 Allergy status to penicillin
CPT/HCPCS: 99285; 80053; 81003; 85025; 36415; 96372; Q0162; J2270

== ENCOUNTER 2024-10-31 09:44 | Emergency (ER) | payer MEDICAID ==
[~2024-10-31] VITALS: Ht 182.9 cm; Wt 147.0 kg
[~2024-10-31 09:44] MED LIST changes: -AMLO5TAB4 MT; -CARV6.2548 PO; -CLIN-194 MT; +COR12 PO; -DIPH25CA83 MT; -FURO40TA5 PO; -MINO2.5T19 PO; +NITR0.4T49 SL; -POTA-205 PO
[2024-10-31 10:01] VITALS: O2SAT 99
[2024-10-31 11:24] LABS: HEMOGLOBIN. 14.2 g/dL (14.0-18.0); MEAN CORPUSCULAR HEMOGLOBIN 30.8 pg (28.0-32.0); MEAN CORPUSCULAR HGB CONC 33.1 g/dL (31.0-37.0); MEAN CORPUSCULAR VOLUME 93.2 fL (80.0-94.0); MEAN PLATELET VOLUME 7.4 fl (7.4-10.4); PLATELET 198 x1000/uL (130-400); RED BLOOD CELL COUNT 4.62 mill/uL (4.7-6.1); RED CELL DISTRIBUTION WIDTH 14.4 % (11.6-14.6); WHITE BLOOD COUNT 3.4 x1000/uL (4.5-11.0)
[2024-10-31 11:31] LABS: CHLORIDE 105 mEq/L (98-107); POTASSIUM 3.4 mEq/L (3.5-5.1); SODIUM 139 mEq/L (136-145)
[2024-10-31 11:32] LABS: CALCIUM 8.7 mg/dL (8.7-10.4); CARBON DIOXIDE 25 mEq/L (21-32)
[2024-10-31 11:33] LABS: DIFFERENTIAL COMMENT 1
[2024-10-31 11:37] LABS: CREATININE 1.2 mg/dL (0.6-1.3); GLUCOSE 100 mg/dL (70-105); UREA NITROGEN BLOOD 9 mg/dL (9-23)
[2024-10-31 12:54] LABS: TROPONIN I HIGH SENSITIVITY 253 ng/L (3.0-53)
[2024-10-31 14:09] LABS: PLATELET ESTIMATE NORMAL
[2024-10-31 14:22] VITALS: BP 150/97; PULSE 84; RESP 18; TEMP 37.00296; O2SAT 97
[2024-10-31] MEDS: ASPIRIN 325MG EC TABLET PO ONE (14:22)
[2024-10-31 14:34] LABS: TROPONIN I HIGH SENSITIVITY 257 ng/L (3.0-53)
== END 2024-10-31 14:26 | disposition left against medical advice (07) ==
LOC: ER 09:57 → EDBEDREQ 13:44 → CANBEDREQ 14:15 → ER 14:26
DX: I24.9 Acute ischemic heart disease, unspecified (principal); I10 Essential (primary) hypertension; I25.10 Atherosclerotic heart disease of native coronary artery without angina pectoris; Z79.82 Long term (current) use of aspirin; Z79.899 Other long term (current) drug therapy; Z88.8 Allergy status to other drugs, medicaments and biological substances; Z88.0 Allergy status to penicillin; Z98.890 Other specified postprocedural states; Z53.29 Procedure and treatment not carried out because of patient's decision for other reasons
CPT/HCPCS: 36415; 71045; 80048; 83880; 84484; 85025; 99284

== ENCOUNTER 2025-07-30 02:43 | Emergency (ER) | payer MEDICAID ==
[~2025-07-30] VITALS: Ht 182.9 cm; Wt 136.2 kg
[~2025-07-30 02:43] MED LIST changes: +CLIN-194 MT
[2025-07-30 03:01] VITALS: O2SAT 99
[2025-07-30 04:04] LABS: BASOPHILS % 0.6 % (0.0-2.0); EOSINOPHILS % 1.2 % (0.0-5.0); HEMATOCRIT. 40.9 % (42.0-52.0); HEMOGLOBIN. 13.3 g/dL (14.0-18.0); LYMPHOCYTES % 22.7 % (20.0-50.0); MONOCYTES % 9.2 % (2.0-8.0); NEUTROPHILS % 66.3 % (40.0-76.0); RED BLOOD CELL COUNT 4.35 mill/uL (4.7-6.1); RED CELL DISTRIBUTION WIDTH 14.8 % (11.6-14.6)
[2025-07-30 04:17] LABS: CREATININE 0.9 mg/dL (0.6-1.3); UREA NITROGEN BLOOD 7 mg/dL (9-23)
[2025-07-30 04:25] LABS: MEAN PLATELET VOLUME 7.2 fl (7.4-10.4); PLATELET 255 x1000/uL (130-400)
[2025-07-30 04:29] LABS: TROPONIN I HIGH SENSITIVITY 62 ng/L (3.0-53)
[2025-07-30] MEDS: ASPIRIN 325MG TABLET PO ONE (05:07)
[2025-07-30 05:16] VITALS: BP 139/89; PULSE 63; RESP 13; TEMP 36.7; O2SAT 95
== END 2025-07-30 05:26 | disposition home or self-care (01) ==
LOC: ER 02:43
DX: I10 Essential (primary) hypertension (principal); E78.00 Pure hypercholesterolemia, unspecified; F10.90 Alcohol use, unspecified, uncomplicated; Z79.02 Long term (current) use of antithrombotics/antiplatelets; Z79.82 Long term (current) use of aspirin; Z79.899 Other long term (current) drug therapy; Z88.0 Allergy status to penicillin; Z88.8 Allergy status to other drugs, medicaments and biological substances; Y90.9 Presence of alcohol in blood, level not specified
CPT/HCPCS: 36415; 71045; 80048; 83880; 84484; 85025; 93005; 99285